=== PATIENT | female | born 1945 | race African-American/Black ===

== ENCOUNTER 2019-10-27 12:57 | Emergency (ER) | payer BC, MEDICAID ==
[~2019-10-27] VITALS: Ht 160 cm; Wt 50.8 kg
[~2019-10-27 12:57] MED LIST: BACL10TA PO; ESCI20TA PO; MELO-105 PO; OMEP20CA15 PO; ZOLP5TAB2 PO
--- NOTE | 2019-10-27 13:04 | NUR ---
PT BIB SELF C/O BURNING LIKE CHEST PAIN X 2 DAYS. WAS DISCHARGE AT [facility]. PT IS AAOX4, NOT IN RESPIRATORY DISTRESS, HOOKED TO MONITOR, KEPT RESTED AND COMFORTABLE, WILL CONTINUE TO MONITOR.
--- NOTE | 2019-10-27 13:13 | NUR ---
SEEN AND EXAMINED BY
--- NOTE | 2019-10-27 13:48 | NUR ---
ER PHLEB AT BEDSIDE FOR BLOOD DRAW.
[2019-10-27 14:00] LABS: BASOPHILS # (AUTO) 0.1 /CMM (0.0-0.2); BASOPHILS % (AUTO) 0.8 % (0.0-2.0); EOSINOPHILS % (AUTO) 0.7 % (0.0-6.0); HEMATOCRIT 38 % (33-45); HEMOGLOBIN 12.3 g/dL (11.5-14.8); LYMPHOCYTES # (AUTO) 2.7 /CMM (0.8-4.8); LYMPHOCYTES % (AUTO) 29.7 % (20.0-44.0); MEAN CORPUSCULAR HGB CONC 32 g/dl (31.0-36.0); MEAN CORPUSCULAR VOLUME 89 fL (82-100); MONOCYTES # (AUTO) 0.8 /CMM (0.1-1.30); MONOCYTES % (AUTO) 9.2 % (2.0-12.0); NEUTROPHILS # (AUTO) 5.4 /CMM (1.8-8.9); NEUTROPHILS % (AUTO) 59.6 % (43.0-81.0); PLATELET COUNT (AUTO) 255 /CMM (150-450); RED BLOOD CELL COUNT(AUTO) 4.28 MIL/uL (4.0-5.2)
[2019-10-27 14:05] LABS: CALCIUM, SERUM 8.9 mg/dL (8.5-10.1); CARBON DIOXIDE 28 mmol/L (21-32); CHLORIDE 104 mmol/L (98-107); GLUCOSE 83 mg/dL (74-106); POTASSIUM 3.1 mmol/L (3.5-5.1); SODIUM SERUM 142 mmol/L (136-145); UREA NITROGEN, BLOOD 15 mg/dL (7-18)
[2019-10-27 14:55] LABS: ALBUMIN 3.2 g/dL (3.4-5.0); BILIRUBIN,DIRECT 0.1 mg/dL (0.0-0.2); BILIRUBIN,TOTAL 0.3 mg/dL (0.2-1.0); TOTAL PROTEIN, SERUM 6.9 g/dL (6.4-8.2)
[2019-10-27] MEDS ORDERED: PREG150C PO (16:06)
[2019-10-27] MEDS ORDERED: LEVO25TA7 PO (16:06)
[2019-10-27] MEDS ORDERED: PREG75CA PO (16:06)
[2019-10-27] MEDS ORDERED: GABA-534 PO (16:06)
[2019-10-27] MEDS ORDERED: FURO-145 PO (16:06)
[2019-10-27] MEDS ORDERED: OXYC30TA2 PO (16:06)
--- NOTE | 2019-10-27 16:23 | NUR ---
PT TAKEN TO CT
[2019-10-27] MEDS ORDERED: CT SWABBABLE VALVE TRANS SET 1 EA INFUS.SET MC ONE (16:24)
[2019-10-27] MEDS ORDERED: IOHEXOL-300 100 ML VIAL IV ONE (16:24)
[2019-10-27] MEDS ORDERED: IV NS 0.9% 250 ML IV ONE (16:24)
[2019-10-27 19:05] VITALS: BP 115/57
--- NOTE | 2019-10-27 19:05 | NUR ---
IV removed. Catheter intact and site benign. Pressure and 4x4 applied to site. No bleeding noted. Patient discharged to home in stable condition. Written and verbal after care instructions given. Patient verbalizes understanding of instruction.
== END 2019-10-27 19:07 | disposition home or self-care (01) ==
LOC: ER 13:07
DX: K59.00 Constipation, unspecified (principal); R07.89 Other chest pain; K62.89 Other specified diseases of anus and rectum; L03.114 Cellulitis of left upper limb; G89.29 Other chronic pain; I10 Essential (primary) hypertension; Z96.653 Presence of artificial knee joint, bilateral; Z95.0 Presence of cardiac pacemaker; Z79.899 Other long term (current) drug therapy
CPT/HCPCS: 36415; 71045; 72131; 74177; 80048; 80076; 83690; 84484; 85025; 85652; 86140; 93005 ×2; 99284; J7050; Q9967

== ENCOUNTER 2019-10-31 16:45 | Emergency (ER) | payer BC, MEDICAID ==
[~2019-10-31] VITALS: Ht 160 cm; Wt 52.2 kg
[~2019-10-31 16:45] MED LIST changes: -ESCI20TA PO; +FURO-145 PO; +GABA-534 PO; +LEVO25TA7 PO; -MELO-105 PO; +OMEP20CA11 PO; -OMEP20CA15 PO; +OXYC30TA2 PO; +PREG150C PO; +PREG75CA PO; -ZOLP5TAB2 PO
--- NOTE | 2019-10-31 17:12 | NUR ---
PATIENT ARRIVED AT UNIT, BIB NEPHEW. PATIENT A/O X 3. WITH REPORT OF CONSTIPATION X 2 WEEKS. ALSO WITH C/O ABD PAIN AND N/V. RESTING ON BED. WILL CONTINUE TO MONITOR ACCORDINGLY
[2019-10-31 17:19] VITALS: BP 135/73
--- NOTE | 2019-10-31 17:24 | NUR ---
PATIENT LEFT ER AMBULATORY WITHOUT BEING SEEN. AWARE.
== END 2019-10-31 17:26 | disposition left against medical advice (07) ==
LOC: ER 16:53
DX: Z53.21 Procedure and treatment not carried out due to patient leaving prior to being seen by health care provider (principal); K59.00 Constipation, unspecified; R11.2 Nausea with vomiting, unspecified; R10.9 Unspecified abdominal pain; I10 Essential (primary) hypertension; Z98.890 Other specified postprocedural states; Z95.0 Presence of cardiac pacemaker

== ENCOUNTER 2020-04-27 14:04 | Emergency (ER) | payer BC, OTHER ==
[~2020-04-27] VITALS: Ht 152.4 cm; Wt 44.9 kg
[~2020-04-27 14:04] MED LIST changes: -OMEP20CA11 PO; +OMEP20CA15 PO
[2020-04-27] MEDS ORDERED: ONDANSETRON HCL/PF 4 MG/2 ML VIAL ONE (14:19)
[2020-04-27] MEDS ORDERED: FAMOTIDINE/PF INJ 20 MG/2 ML VIAL IV ONE ×2 (14:30→15:00)
[2020-04-27] MEDS ORDERED: IV NS 0.9% 500 ML BAG IV ONE (14:30)
[2020-04-27] MEDS ORDERED: MAG HYDROX/AL HYDROX/SIMETH 30 ML UDC PO ONE (14:30)
[2020-04-27] MEDS ORDERED: ONDANSETRON HCL/PF 4 MG/2 ML VIAL IVP ONE (14:30)
[2020-04-27] MEDS ORDERED: LIDOCAINE VISCOUS 2% UD 15 ML UDC MM ONE (14:30)
[2020-04-27 14:37] LABS: BASOPHILS # (AUTO) 0.1 /CMM (0.0-0.2); BASOPHILS % (AUTO) 1.5 % (0.0-2.0); EOSINOPHILS % (AUTO) 0.6 % (0.0-6.0); HEMATOCRIT 36 % (33-45); HEMOGLOBIN 11.6 g/dL (11.5-14.8); LYMPHOCYTES # (AUTO) 2.2 /CMM (0.8-4.8); LYMPHOCYTES % (AUTO) 23.4 % (20.0-44.0); MEAN CORPUSCULAR HGB CONC 33 g/dl (31.0-36.0); MEAN CORPUSCULAR VOLUME 87 fL (82-100); MONOCYTES # (AUTO) 0.8 /CMM (0.1-1.30); MONOCYTES % (AUTO) 8.5 % (2.0-12.0); NEUTROPHILS # (AUTO) 6.1 /CMM (1.8-8.9); PLATELET COUNT (AUTO) 379 /CMM (150-450); RED BLOOD CELL COUNT(AUTO) 4.08 MIL/uL (4.0-5.2); WHITE BLOOD COUNT (AUTO) 9.2 K/uL (4.3-11.0)
[2020-04-27 14:43] LABS: CALCIUM, SERUM 8.9 mg/dL (8.5-10.1); CARBON DIOXIDE 28 mmol/L (21-32); CHLORIDE 107 mmol/L (98-107); CREATININE 1.1 mg/dL (0.6-1.3); GLUCOSE 68 mg/dL (74-106); POTASSIUM 3.9 mmol/L (3.5-5.1); SODIUM SERUM 144 mmol/L (136-145); UREA NITROGEN, BLOOD 16 mg/dL (7-18)
[2020-04-27 14:49] LABS: ALANINE AMINOTRANSFERASE 30 U/L (12-78); ALBUMIN 2.8 g/dL (3.4-5.0); ALKALINE PHOSPHATASE 245 U/L (46-116); ASPARTATE AMINOTRANSFERASE 106 U/L (15-37); BILIRUBIN,DIRECT 0.7 mg/dL (0.0-0.2); BILIRUBIN,TOTAL 1.3 mg/dL (0.2-1.0); LIPASE 38 U/L (73-393)
[2020-04-27] MEDS ORDERED: LIDOCAINE VISCOUS 2% UD 15 ML UDC ONE (15:00)
[2020-04-27] MEDS ORDERED: MAG HYDROX/AL HYDROX/SIMETH 30 ML UDC ONE (15:00)
--- NOTE | 2020-04-27 16:30 | NUR ---
TOOK OVER PT CARE. PT AAOX4. AMBULATORY USING ONE CRUTCH. PT C/O INTERMITTENT MIDSTERNAL CP WITH UPPER ABD PAIN FOR THE PAST MONTH. LABS AND URINE COLELCTED. PT DENIES PAIN AT THE MOMENET. VSS. WILL CONTINUE TO MONITOR.
--- NOTE | 2020-04-27 17:03 | NUR ---
Patient is resting comfortably. Easily aroused. VSS.
[2020-04-27 17:05] LABS: APPEARANCE,URINE Slightly Cloudy (CLEAR); BILIRUBIN,URINE LARGE (NEGATIVE); BLOOD, URINE Large Ery/uL (NEGATIVE); COLOR,URINE Amber (YELLOW); KETONES,URINE 40 (NEGATIVE); LEUKOCYTE ESTERASE ,URINE Negative (NEGATIVE); NITRITE, URINE Negative (NEGATIVE); PROTEIN,URINE 100 mg/dl (NEGATIVE); UGLUCOSE Negative (NEGATIVE)
[2020-04-27 17:20] LABS: BACTERIA,URINE Few /HPF (None Seen); SQUAMOUS EPITHELIAL CELL,UR Few /HPF (None Seen)
--- NOTE | 2020-04-27 17:49 | NUR ---
PT PLACED IN ROOM 7
--- NOTE | 2020-04-27 18:09 | NUR ---
ORDER FOR COVID SWAB PLACED. CALLED LAB FOR SWAB.
--- NOTE | 2020-04-27 18:31 | NUR ---
COVID SWAB SENT TO LAB
[2020-04-27 19:26] VITALS: BP 121/73
--- NOTE | 2020-04-27 19:26 | NUR ---
Patient discharged to home in stable condition. Written and verbal after care instructions given. Patient verbalizes understanding of instruction and RX. IV removed. Catheter intact and site benign. Pressure and 4x4 applied to site. No bleeding noted.
--- NOTE | 2020-04-28 23:02 | NUR ---
LAB CALLED WITH COVID 19 RESULT. COVID 19 TEST IS NEGATIVE.
== END 2020-04-27 20:06 | disposition home or self-care (01) ==
LOC: ER 14:16
DX: R05 Cough (principal); R07.9 Chest pain, unspecified; Z20.828 Contact with and (suspected) exposure to other viral communicable diseases; I50.9 Heart failure, unspecified; Z95.0 Presence of cardiac pacemaker; G89.29 Other chronic pain; Z79.899 Other long term (current) drug therapy; Z87.891 Personal history of nicotine dependence; E03.9 Hypothyroidism, unspecified; Z79.890 Hormone replacement therapy; I70.0 Atherosclerosis of aorta; R91.8 Other nonspecific abnormal finding of lung field; R10.30 Lower abdominal pain, unspecified; R60.0 Localized edema; R74.0 Nonspecific elevation of levels of transaminase and lactic acid dehydrogenase [LDH]; E88.09 Other disorders of plasma-protein metabolism, not elsewhere classified; E80.6 Other disorders of bilirubin metabolism
CPT/HCPCS: 36415; 71045; 80048; 80076; 81001; 83690; 83880; 84484 ×2; 85025; 85730; 93005; 96361; 96374; 96375; 99285; J2405; J3490; J7040; U0003; 81000-TC

== ENCOUNTER 2020-05-14 13:57 | Inpatient (IN) | payer OTHER ==
[~2020-05-14] VITALS: Ht 152.4 cm; Wt 51.7 kg
[2020-05-14] MEDS ORDERED: IV NS 0.9% 1,000 ML IV ONE (14:10)
--- NOTE | 2020-05-14 14:10 | NUR ---
patient came in to the er c/o feeling sick and weak. On room air, breathing evenly and unlabored. connected to the monitor and pulse ox. Kept comfortable, will continue to monitor accordingly.
[2020-05-14] MEDS ORDERED: ONDANSETRON HCL/PF 4 MG/2 ML VIAL ONE (14:15)
[2020-05-14] MEDS ORDERED: KETOROLAC TROMETHAMINE 15 MG/ML VIAL ONE (14:15)
[2020-05-14] MEDS ORDERED: ONDANSETRON HCL/PF 4 MG/2 ML VIAL IVP ONE (14:30)
[2020-05-14] MEDS ORDERED: KETOROLAC TROMETHAMINE INJ 30 MG/ML VIAL IV ONE (14:30)
[2020-05-14 14:46] LABS: ABG BASE EXCESS 0.5 mmol/L; ABG OXYGEN SATURATION 92.6 % (92.0-98.5); ABG PCO2 37.4 mmHg (35.0-45.0); ABG PH 7.435 (7.350-7.450); ABG PO2 67.8 mmHg (75.0-100.0); AaDO2 37.1 mmHg; COHb 0.8 % (0.5-1.5); MetHb 0.4 % (0.0-1.5); O2Hb 91.5 % (94.0-97.0); SITE, ABG Right Radial; VENT MODE, BG ROOM AIR
[2020-05-14 15:22] LABS: BASOPHILS # (AUTO) 0.1 /CMM (0.0-0.2); EOSINOPHILS % (AUTO) 0.5 % (0.0-6.0); HEMATOCRIT 34 % (33-45); LYMPHOCYTES % (AUTO) 10.9 % (20.0-44.0); MEAN CORPUSCULAR HGB CONC 33 g/dl (31.0-36.0); MEAN CORPUSCULAR VOLUME 86 fL (82-100); MONOCYTES # (AUTO) 1.2 /CMM (0.1-1.30); MONOCYTES % (AUTO) 12.7 % (2.0-12.0); NEUTROPHILS % (AUTO) 74.9 % (43.0-81.0); PLATELET COUNT (AUTO) 422 /CMM (150-450); RED BLOOD CELL COUNT(AUTO) 3.91 MIL/uL (4.0-5.2); WHITE BLOOD COUNT (AUTO) 9.3 K/uL (4.3-11.0)
[2020-05-14 15:32] LABS: CALCIUM, SERUM 8.5 mg/dL (8.5-10.1); CARBON DIOXIDE 30 mmol/L (21-32); CHLORIDE 98 mmol/L (98-107); CREATININE 1.2 mg/dL (0.6-1.3); GLUCOSE 78 mg/dL (74-106); POTASSIUM 3.3 mmol/L (3.5-5.1); SODIUM SERUM 137 mmol/L (136-145); UREA NITROGEN, BLOOD 15 mg/dL (7-18)
--- NOTE | 2020-05-14 15:38 | NUR ---
urine collected and sent to lab
[2020-05-14] MEDS ORDERED: IOHEXOL-300 100 ML VIAL IV ONE (15:42)
[2020-05-14] MEDS ORDERED: IV NS 0.9% 250 ML IV ONE (15:42)
[2020-05-14 15:44] LABS: APPEARANCE,URINE Slightly Cloudy (CLEAR); BILIRUBIN,URINE LARGE (NEGATIVE); BLOOD, URINE Negative Ery/uL (NEGATIVE); COLOR,URINE Amber (YELLOW); KETONES,URINE 40 (NEGATIVE); LEUKOCYTE ESTERASE ,URINE Negative (NEGATIVE); NITRITE, URINE Negative (NEGATIVE); PH,URINE 5.5 (5.0-8.0); PROTEIN,URINE 100 mg/dl (NEGATIVE); UGLUCOSE Negative (NEGATIVE)
[2020-05-14 15:45] LABS: ALANINE AMINOTRANSFERASE 36 U/L (12-78); ALBUMIN 2.4 g/dL (3.4-5.0); ALKALINE PHOSPHATASE 396 U/L (46-116); ASPARTATE AMINOTRANSFERASE 174 U/L (15-37); B-TYPE NATRIURETIC PEPTIDE 930 PG/ML (0-125); BILIRUBIN,TOTAL 1.5 mg/dL (0.2-1.0); TOTAL PROTEIN, SERUM 5.9 g/dL (6.4-8.2)
[2020-05-14 15:56] LABS: BACTERIA,URINE None seen /HPF (None Seen); RBC,URINE 0-2 /HPF (0-2); SQUAMOUS EPITHELIAL CELL,UR Few /HPF (None Seen)
[2020-05-14] MEDS ORDERED: HYDR-3980 MT (15:59)
[2020-05-14] MEDS ORDERED: ONDA-97 PO (15:59)
[2020-05-14] MEDS ORDERED: BENZ-38 MT (15:59)
[2020-05-14 16:13] LABS: THYROID STIMULATING HORMONE 2.863 uIU/mL (0.358-3.74)
[2020-05-14] MEDS ORDERED: LEVOFLOXACIN 750 MG /D5W 150ML 150 ML IV ONE (16:26)
[2020-05-14] MEDS ORDERED: VANCOMYCIN HCL 1.25 GM in IV D5W 260 ML IV ONE (16:30)
[2020-05-14] MEDS ORDERED: LEVOFLOXACIN 750 MG /D5W 150ML PIGGYBACK IV ONE (16:30)
[2020-05-14 16:41] LABS: D-DIMER 5.4 mg/L(FEU (0.17-0.50)
[2020-05-14] MEDS ORDERED: VANCOMYCIN HCL 1.25 GM in IV D5W 250 ML IV ONE (16:41)
[2020-05-14] MEDS ORDERED: MAGNESIUM HYDROXIDE 30 ML UDC PO PRN (17:00)
[2020-05-14] MEDS ORDERED: HYDROCODONE/APAP 5/325MG 1 EACH TABLET PO PRN (17:00)
[2020-05-14] MEDS ORDERED: ACETAMINOPHEN 325 MG TABLET PO PRN (17:00)
[2020-05-14] MEDS ORDERED: DOXYCYCLINE HYCLATE (100 MG) 100 MG TABLET PO SCH (17:00)
[2020-05-14] MEDS ORDERED: MAG HYDROX/AL HYDROX/SIMETH 30 ML UDC PO PRN (17:00)
[2020-05-14] MEDS ORDERED: TEMAZEPAM 15 MG CAPSULE PO PRN (17:00)
[2020-05-14] MEDS ORDERED: ENOXAPARIN SODIUM 40 MG/0.4 ML DISP.SYRIN SQ SCH (17:00)
[2020-05-14] MEDS ORDERED: Z GUARD REMEDY 2 OZ OINT TP PRN (17:00)
--- NOTE | 2020-05-14 18:23 | NUR ---
NURSING SUP GAVE 105.
[2020-05-14 18:24] LABS: BILIRUBIN,DIRECT 0.9 mg/dL (0.0-0.2)
--- NOTE | 2020-05-14 19:08 | NUR ---
report given to Libby CLEARY for sherry
--- NOTE | 2020-05-14 20:08 | NUR ---
REPORT GIVEN TO KASHIF CLEARY
[2020-05-14 20:15] VITALS: BP 97/52
--- NOTE | 2020-05-14 20:15 | NUR ---
RN ADMITTING NOTES: RECEIVED PATIENT FROM ER VIA GURNEY; ADMITTING DIAGNOSIS OF BILATERAL PNEUMONIA R/O COVID19; RESULTS PENDING. PATIENT AWAKE, ALERT AND ORIENTED X4. DENIES PAIN AT TIME OF RECEIPT. IN NO S/SX OF ACUTE DISTRESS AT THIS TIME. NO SOB NOTED. PATIENT'S BREATHING IS EVEN AND UNLABORED. PATIENT IS ON RA ; TOLERATING WELL.SATURATING >95% AT THE MOMENT. PATIENT ON TELE MONITORING READING SR WITH HR 60s. NOTED IV SITE ON L HAND ; GAUGE 20 ,FLUSHING AND PATENT , SALINE LOCKED. NO S/S OF INFECTION OR INFILTRATION. PATIENT ON DIAPERS. NOTED BILATERAL FOOT SWELLING/EDEMA; PICTURE TAKEN AND PLACED IN CHART. PATIENT KEPT CLEAN , DRY AND COMFORTABLE.SAFETY MEASURES HAVE BEEN PROVIDED AND IMPLEMENTED. PATIENT BED ALARM IS ON. HEAD OF BED ELEVATED. BED IS LOCKED, IN LOWEST POSITION AND SIDE RAILS UP. CALL LIGHT WITHIN REACH OF THE PATIENT. ISOLATION PRECAUTIONS IN PLACE. WILL CONTINUE TO MONITOR AND REASSESS FOR ANY CHANGES. WILL ATTEND TO ALL MD ADMITTING ORDERS.
[2020-05-14] MEDS ORDERED: CEFEPIME 1 GM in IV D5W 50 ML IV SCH (21:00)
[2020-05-14 21:57] LABS: CREATINE KINASE, TOTAL 107 U/L (26-192); FERRITIN 1413 ng/mL (8-388)
[2020-05-14 21:59] LABS: C-REACTIVE PROTEIN 8.2 mg/dL (0.0-0.9)
[2020-05-15] VITALS: BP_SYST 108; BP_SYST 97; BP_DIAS 52; BP_DIAS 65
[2020-05-15] MEDS: IV NS 0.9% 1,000 ML IV PRN ×2 (01:16→17:11)
[2020-05-15 04:00] VITALS: BP_SYST 100; BP_SYST 107; BP_DIAS 51; BP_DIAS 55
[2020-05-15 06:29] LABS: BASOPHILS % (AUTO) 0.5 % (0.0-2.0); EOSINOPHILS % (AUTO) 0.3 % (0.0-6.0); HEMATOCRIT 30 % (33-45); HEMOGLOBIN 10.2 g/dL (11.5-14.8); LYMPHOCYTES # (AUTO) 1.7 /CMM (0.8-4.8); LYMPHOCYTES % (AUTO) 20.3 % (20.0-44.0); MEAN CORPUSCULAR HGB CONC 34 g/dl (31.0-36.0); MEAN CORPUSCULAR VOLUME 85 fL (82-100); MONOCYTES # (AUTO) 0.6 /CMM (0.1-1.30); MONOCYTES % (AUTO) 6.6 % (2.0-12.0); NEUTROPHILS # (AUTO) 6.1 /CMM (1.8-8.9); NEUTROPHILS % (AUTO) 72.3 % (43.0-81.0); PLATELET COUNT (AUTO) 384 /CMM (150-450); RED BLOOD CELL COUNT(AUTO) 3.57 MIL/uL (4.0-5.2); WHITE BLOOD COUNT (AUTO) 8.5 K/uL (4.3-11.0)
[2020-05-15 06:37] LABS: CALCIUM, SERUM 7.6 mg/dL (8.5-10.1); CREATININE 1.1 mg/dL (0.6-1.3); MAGNESIUM 1.6 mg/dL (1.8-2.4); PHOSPHORUS 3.2 mg/dL (2.5-4.9); POTASSIUM 3.1 mmol/L (3.5-5.1)
--- NOTE | 2020-05-15 06:37 | NUR ---
RN CLOSING NOTE: PATIENT REMAINS IN ROOM. NO SIGNS OF RESPIRATORY. SAFETY MEASURES IMPLEMENTED, BED IN LOWEST POSITION, LOCKED, SIDE RAILS UP, CALL LIGHT WITHIN REACH. ENDORSED TO INCOMING SHIFT RN FOR CONTINUITY OF CARE.
[2020-05-15 07:11] LABS: THYROID STIMULATING HORMONE 2.184 uIU/mL (0.358-3.74)
--- NOTE | 2020-05-15 07:43 | NUR ---
RN OPENING NOTE: PATIENT REMAINS IN ROOM. ALERT AND ORIENTED X4. SAFETY MEASURES IMPLEMENTED, BED IN LOWEST POSITION, LOCKED, SIDE RAILS UP, CALL LIGHT WITHIN REACH. WILL CONTINUE FOR CARE.
[2020-05-15] MEDS: PANTOPRAZOLE 40 MG TABLET.DR PO SCH (07:57)
[2020-05-15 08:00] VITALS: BP 105/56
[2020-05-15] MEDS: HYDROCODONE/APAP 10/325MG 1 EA TABLET PO PRN ×2 (10:37→19:33)
--- NOTE | 2020-05-15 10:43 | NUR ---
WOUND CARE CONSULT: REVIEWED CHART, NURSING DOCUMENTATION AND PHOTOS WHICH SHOW SCARS, BRUISING AND DISCOLORATION TO EXTREMITIES, PRESENT ON ADMISSION. RECOMMENDATIONS MADE FOR SKIN PROTECTION. SPOKE WITH RN WHO STATES THAT PT IS MOVING ABOUT IN BED. WILL SEE PRN. MCELROY IN AGREEMENT WITH PLAN OF CARE.
[2020-05-15] MEDS: POTASSIUM CHLORIDE 20 MEQ TAB.PRT.SR PO SCH ×2 (11:35→12:44)
[2020-05-15] MEDS: Magnesium 1GM/D5W 100ML PREMIX 100 ML IV SCH ×2 (11:35→12:44)
[2020-05-15 12:00] VITALS: BP 80/40
--- NOTE | 2020-05-15 13:20 | NUR ---
COVID NEGATIVE JESSICA Liu AND DR. FLORES NOTIFIED.
[2020-05-15 16:00] VITALS: BP 86/50
[2020-05-15] MEDS ORDERED: LEVOFLOXACIN 500 MG /D5W 100ML 500 MG in PREMIX 1 EA IV SCH (16:00)
--- NOTE | 2020-05-15 17:00 | NUR ---
MS RN NOTES REPORT RECEIVED FROM [facility] PATIENT IS TRANSFERRED TO ROOM 111 BED 1. PATIENT CYRIL. WILL CONTINUE TO MONITOR HER.
[2020-05-15] MEDS: LEVOFLOXACIN 750 MG /D5W 150ML 750 MG in PREMIX 1 EA IV SCH (17:11)
--- NOTE | 2020-05-15 18:31 | NUR ---
RN NOTES PER DR DAVIS GI CONSULT WITH DR MANZANO ORDERED. CALLED DR MANZANO`S OFFICE AND LEFT A MESSAGE FOR THE CONSULTATION.
[2020-05-15] MEDS: ONDANSETRON HCL/PF 4 MG/2 ML VIAL IVP PRN (18:43)
--- NOTE | 2020-05-15 19:22 | NUR ---
MS RN NOTES PATIENT IN BED A/OX4. NO SOB OR DISCOMFORT AT THIS TIME. ALL NEEDS ATTENDED. CALL LIGHT WITHIN REACH. BED AT THE LOWEST POSITION LOCKED. REPORT GIVEN TO DESIGN ANALYST RN FOR SHELIA.
[2020-05-15 20:00] VITALS: BP 97/55
[2020-05-15] MEDS: ENOXAPARIN SODIUM 30 MG/0.3 ML DISP.SYRIN SQ SCH ×2 (21:23→21:46)
[2020-05-16 06:14] LABS: BASOPHILS # (AUTO) 0.1 /CMM (0.0-0.2); BASOPHILS % (AUTO) 0.7 % (0.0-2.0); EOSINOPHILS % (AUTO) 0.3 % (0.0-6.0); HEMATOCRIT 32 % (33-45); HEMOGLOBIN 10.4 g/dL (11.5-14.8); LYMPHOCYTES # (AUTO) 1.8 /CMM (0.8-4.8); LYMPHOCYTES % (AUTO) 19.3 % (20.0-44.0); MEAN CORPUSCULAR HGB CONC 33 g/dl (31.0-36.0); MEAN CORPUSCULAR VOLUME 86 fL (82-100); MONOCYTES # (AUTO) 0.7 /CMM (0.1-1.30); MONOCYTES % (AUTO) 7.5 % (2.0-12.0); NEUTROPHILS # (AUTO) 6.7 /CMM (1.8-8.9); NEUTROPHILS % (AUTO) 72.2 % (43.0-81.0); PLATELET COUNT (AUTO) 401 /CMM (150-450); RED BLOOD CELL COUNT(AUTO) 3.68 MIL/uL (4.0-5.2); WHITE BLOOD COUNT (AUTO) 9.3 K/uL (4.3-11.0)
[2020-05-16 06:54] LABS: ALBUMIN 1.8 g/dL (3.4-5.0); BILIRUBIN,TOTAL 1.3 mg/dL (0.2-1.0); CALCIUM, SERUM 7.5 mg/dL (8.5-10.1); CREATININE 1.1 mg/dL (0.6-1.3); MAGNESIUM 2.2 mg/dL (1.8-2.4); PHOSPHORUS 2.9 mg/dL (2.5-4.9); POTASSIUM 3.7 mmol/L (3.5-5.1); TOTAL PROTEIN, SERUM 4.8 g/dL (6.4-8.2)
--- NOTE | 2020-05-16 07:10 | NUR ---
RN OPENING NOTE: Received patient in bed. Awake, alert and oriented x4. On Room air with no SOB and no respiratory distress noted on patient. IV site clean, dry, patent and intact with IV infusion of NS @ 75mls/hr. No pain noted on patient. Report received that patient has unsteady gait, for PT eval this shift. Call light in reach. Bed locked, low and at semi-ortiz's position. Side rails up x3. Safety ensured and observed. Will continue to monitor.
[2020-05-16 08:00] VITALS: BP 135/89
[2020-05-16] MEDS: PANTOPRAZOLE 40 MG TABLET.DR PO SCH (09:25)
[2020-05-16] MEDS: ONDANSETRON HCL/PF 4 MG/2 ML VIAL IVP PRN (10:23)
[2020-05-16] MEDS: ENSURE ENLIVE 237 ML LIQUID (VANILLA) PO SCH ×3 (11:00→17:00)
[2020-05-16] MEDS ORDERED: PSYLLIUM SEED 1 PKT PACKET PO ONE (13:00)
[2020-05-16 16:00] VITALS: BP 131/85
[2020-05-16] MEDS: DOCUSATE SODIUM 100 MG CAPSULE PO SCH (17:00)
--- NOTE | 2020-05-16 19:05 | NUR ---
RN closing note: No acute changes noted on shift. patient remains in bed. Awake, alert and oriented x4. On Room air with no SOB and no respiratory distress noted on patient. Currently with no IV site due to patient pulling site and refusing reinsertion. Sanjay Blevins informed and acknowledged information. Call light in reach. Bed locked, low and at semi-ortiz's position. Side rails up x3. Safety ensured and observed. Due medications given. Treatment given as ordered.
[2020-05-16 20:00] VITALS: BP 120/59
[2020-05-16] MEDS: ENOXAPARIN SODIUM 30 MG/0.3 ML DISP.SYRIN SQ SCH (21:16)
[2020-05-17] VITALS: BP 120/59
[2020-05-17] MEDS: IV NS 0.9% 1,000 ML IV PRN (01:29)
[2020-05-17 08:00] VITALS: BP_SYST 101; BP_SYST 118; BP_DIAS 55; BP_DIAS 84
--- NOTE | 2020-05-17 08:00 | NUR ---
RN NOTES RECEIVED PATIENT IN THE BED RESTING, GET CT OF CHEST WO CONTRAST, PATIENT A/O X3, REDIRECTABLE, V/S WNL, ADMINISTERED SCHEDULED MEDICATION, PATIENT WAS COMPLAINING OF PAIN ON UPPER CHEST. PATIENT PREFERRED TAKE BREAKFAST LATE BECAUSE WANTED TO REST. CALL LIGHT WITHIN TO REACH. CONTINUED MONITORING.
[2020-05-17] MEDS: PANTOPRAZOLE 40 MG TABLET.DR PO SCH (09:21)
[2020-05-17] MEDS: DOCUSATE SODIUM 100 MG CAPSULE PO SCH ×2 (09:21→17:00)
[2020-05-17] MEDS: ENSURE ENLIVE 237 ML LIQUID (VANILLA) PO SCH ×3 (09:22→17:00)
[2020-05-17] MEDS: HYDROCODONE/APAP 10/325MG 1 EA TABLET PO PRN (09:23)
--- NOTE | 2020-05-17 09:23 | NUR ---
RN NOTES ADMINISTERED NARCO 10/325 MG PO PRN FOR UPPER CHEST PAIN 06/01 PER PATIENT REQUEST, BP 101/55, P-93, R-18. CONTINUED MONITORING.
[2020-05-17] MEDS: ONDANSETRON HCL/PF 4 MG/2 ML VIAL IVP PRN (10:27)
--- NOTE | 2020-05-17 10:27 | NUR ---
rn notes administered Zofran 4 mg/ml iv push for nausea/vomiting.
[2020-05-17] MEDS ORDERED: PEG 3350/NA SULF,BICARB,CL/KCL 4,000 ML BOTTLE PO ONE (13:00)
[2020-05-17 13:17] LABS: PTH, INTACT 23 pg/mL (15-65)
--- NOTE | 2020-05-17 13:32 | NUR ---
rn notes PATIENT NPO FOR COLONOSCOPE LATE AFTERNOON STARTED GOLYTELY 4L AT THIS TIME, EDUCATION PATIENT IMPORTANT OF MEDICATION INTAKE.
--- NOTE | 2020-05-17 13:50 | NUR ---
rn notes patient with PT at this time get out of bed, and marches the place, then assist back to the bed.
[2020-05-17 14:22] LABS: *SPE A/G RATIO 0.8 (0.7-1.7); *SPE ALBUMIN 2.1 g/dL (2.9-4.4); *SPE ALPHA-1-GLOBULIN 0.4 g/dL (0.0-0.4); *SPE ALPHA-2-GLOBULIN 0.7 g/dL (0.4-1.0); *SPE BETA GLOBULIN 0.7 g/dL (0.7-1.3); *SPE GLOBULIN, TOTAL 2.5 g/dL (2.2-3.9); *SPE M-SPIKE Not Observed g/dL (Not Observed); *SPEGAMMA GLOBULIN 0.8 g/dL (0.4-1.8)
[2020-05-17] MEDS: MORPHINE SULFATE INJ 4 MG/ML DISP.SYRIN IV PRN (15:51)
--- NOTE | 2020-05-17 15:51 | NUR ---
RN NOTES ADMINISTERED MORPHINE SULFATE 4 MG/ML IV PUSH FOR GENERALIZED PAIN 06/01 PER PATIENT REQUEST. V/S TAKEN BP 105/ 63, P-83, R-18. CONTINUED MONITORING.
[2020-05-17 16:00] VITALS: BP 105/62
[2020-05-17] MEDS: LEVOFLOXACIN 750 MG /D5W 150ML 750 MG in PREMIX 1 EA IV SCH (17:26)
--- NOTE | 2020-05-17 18:30 | NUR ---
RN NOTES PATIENT DRINK 2 GLASS OF GOLYTELY AT THIS TIME , PATIENT STATE "I AM TRYING MY BEST". NOTIFIED GI MD TEJADA. AND PER MD GET TO ORDER CONTINUED NPO, AND MEDICATION UNTIL PATIENT WELL CLEAN UP. CALL LIGHT WITHIN TO REACH. ENDORSED ONCOMING NURSE FOLLOW PLAN OF CARE.
--- NOTE | 2020-05-17 19:30 | NUR ---
MS RN RECEIVE PT IN BED AWAKE A/O X 3 STABLE, NO S/S OF DISTRESS, SAFETY MEASURES AT ALL TIMES. WILL CONT TO MONITOR
[2020-05-17 20:00] VITALS: BP 102/58
[2020-05-17] MEDS: ENOXAPARIN SODIUM 30 MG/0.3 ML DISP.SYRIN SQ SCH (22:02)
--- NOTE | 2020-05-17 22:03 | NUR ---
Ms rn Patient refused lovenox 40 mg and lipitor 20 mg despite explaining risks and benefits offered 3 times pt refused at this time Addendum: 05/17/20 at 2207 by GUANACO MCKEON RN MISTAKEN ENTRY PLEASE DISREGARD THIS DOCUMENTATION THIS IS FOR DIFFERENT PATIENT
--- NOTE | 2020-05-18 | NUR ---
MS RN PT REFUSED TO FINISH HER GOLETY DESPITE EXPLAINING RISKS AND BENEFITS OFFERED 3 TIMES PATIENT REFUSED
--- NOTE | 2020-05-18 05:55 | NUR ---
MS RN SLEPT WELL, AFEBRILE. NO S/S OF DISTRESS. ALL NEEDS ATTENDED AND ANTICIPATED, KEPT CLEAN, DRY AND COMFORTABLE. AM CARE RENDERED,ASSISTED REPOSITION EVERY 2 HOURS, SAFETY MEASURES AT ALL TIMES. WILL ENDORSE TO NEXT SHIFT.
[2020-05-18 06:47] LABS: BASOPHILS % (AUTO) 0.4 % (0.0-2.0); EOSINOPHILS % (AUTO) 0.3 % (0.0-6.0); HEMATOCRIT 33 % (33-45); HEMOGLOBIN 10.7 g/dL (11.5-14.8); LYMPHOCYTES # (AUTO) 2.4 /CMM (0.8-4.8); LYMPHOCYTES % (AUTO) 21.4 % (20.0-44.0); MEAN CORPUSCULAR HGB CONC 32 g/dl (31.0-36.0); MEAN CORPUSCULAR VOLUME 85 fL (82-100); MONOCYTES # (AUTO) 0.8 /CMM (0.1-1.30); MONOCYTES % (AUTO) 7.2 % (2.0-12.0); NEUTROPHILS # (AUTO) 7.8 /CMM (1.8-8.9); NEUTROPHILS % (AUTO) 70.7 % (43.0-81.0); PLATELET COUNT (AUTO) 325 /CMM (150-450); RED BLOOD CELL COUNT(AUTO) 3.87 MIL/uL (4.0-5.2); WHITE BLOOD COUNT (AUTO) 11.1 K/uL (4.3-11.0)
[2020-05-18] MEDS: ENSURE ENLIVE 237 ML LIQUID (VANILLA) PO SCH ×3 (07:26→17:41)
[2020-05-18] MEDS: DOCUSATE SODIUM 100 MG CAPSULE PO SCH ×2 (07:27→17:38)
[2020-05-18] MEDS: PANTOPRAZOLE 40 MG TABLET.DR PO SCH (07:27)
[2020-05-18 07:28] LABS: ALANINE AMINOTRANSFERASE 33 U/L (12-78); ALBUMIN 1.8 g/dL (3.4-5.0); ALKALINE PHOSPHATASE 381 U/L (46-116); ASPARTATE AMINOTRANSFERASE 158 U/L (15-37); BILIRUBIN,TOTAL 1.4 mg/dL (0.2-1.0); CALCIUM, SERUM 7.6 mg/dL (8.5-10.1); CARBON DIOXIDE 25 mmol/L (21-32); CHLORIDE 106 mmol/L (98-107); CREATININE 0.9 mg/dL (0.6-1.3); MAGNESIUM 1.9 mg/dL (1.8-2.4); PHOSPHORUS 2.6 mg/dL (2.5-4.9); POTASSIUM 3.7 mmol/L (3.5-5.1); SODIUM SERUM 140 mmol/L (136-145); TOTAL PROTEIN, SERUM 4.8 g/dL (6.4-8.2); UREA NITROGEN, BLOOD 11 mg/dL (7-18)
[2020-05-18 07:58] LABS: GLUCOSE 47 mg/dL (74-106)
[2020-05-18 08:00] VITALS: BP 101/59
--- NOTE | 2020-05-18 08:00 | NUR ---
RN NOTES RECEIVED PATIENT IN THE BED A/O X3, ON ROOM AIR, REFUSED PAIN, PATIENT NPO WILLING TO TAKE GOLYTELY FOR COLONOSCOPY. V/S TAKEN STABLE, PER LAB RESULT PATIENT BS-47. SEEN PATIENT FOR HOSPITALIST GET TO ORDER D51/2 NS AT 80 ML/HR . ORDER TAKEN AND CARRIED OUT. HOSPITALIST TALK TO THE PATIENT AND EXPLAINED FOR IMPORTANT OF TAKING GOLYTELY FOR CONTINUED TREATMENT. PATIENT STATE "I WILL TRY" . CALL LIGHT WITHIN TO REACH, CONTINUED MONITORING.
[2020-05-18] MEDS: IV D5/0.45 NACL 1,000 ML IV PRN (09:58)
[2020-05-18] MEDS: ONDANSETRON HCL/PF 4 MG/2 ML VIAL IVP PRN ×2 (11:20→17:43)
[2020-05-18 11:22] VITALS: BP 121/73
[2020-05-18] MEDS: MORPHINE SULFATE INJ 4 MG/ML DISP.SYRIN IV PRN (11:24)
--- NOTE | 2020-05-18 11:24 | NUR ---
RN NOTES ADMINISTERED MORPHINE SULFATE 4 MG/ML IV PUSH FOR GENERALIZED PAIN 8/10PER PATIENT REQUEST, AND ZOFRAN4 MG/ML IV PUSH FOR NAUSEA. V/S TAKEN BP 121/73, P-93, R-20. PATIENT CLEAN FOR COLONOSCOPY.
--- NOTE | 2020-05-18 12:29 | NUR ---
RN NOTES PATIENT STABLE, V/S WNL, REFUSED PAIN, AND NO N/V AT THIS TIME. FLAT KNITTER FOR COLONOSCOPY AT THIS TIME.
[2020-05-18] MEDS ORDERED: DEXTROSE 50%-WATER 50 ML DISP.SYRIN ONE (13:07)
[2020-05-18 13:45] VITALS: BP 105/62
--- NOTE | 2020-05-18 13:45 | NUR ---
RN NOTES PATIENT BACK FROM COLONOSCOPY DONE SIGMOIDOSCOPY, BIOPSY, AND CURETTAGE AT RECTUM. PATIENT AWAKE, NO ACUTE RESPIRATORY DISTRESS, REFUSED PAIN, ALSO GET ORDERS, RESUME PO MEDICATION, AND PATIENT ABLE TO EAT. V/S TAKEN BP 105/62, P-64, R-18, T-97.8, O2-99 %ROOM AIR. CONNECTED IV D51/2 ND AT 800 ML/HR ON RIGHT UPPER ARM. CONTINUED MONITORING.
[2020-05-18 16:00] VITALS: BP 109/62
--- NOTE | 2020-05-18 17:44 | NUR ---
RN NOTES ADMINISTERED ZOFRAN 4 MG/ML IV PUSH FOR NAUSEA/VOMITING.
--- NOTE | 2020-05-18 18:00 | NUR ---
RN NOTES GTE CALL FROM PATIENT SON NAME RIAN Bacon AND WAS ASKING MORE DITAL INFORMATION ABOUT HIS MOM, TEXT SONS NAME AND PHONE NUMBER TO THE DR DAVIS FOLLOW UP.
--- NOTE | 2020-05-18 18:19 | NUR ---
RN NOTES MEDICATION WERE ADMINISTERED FOR NAUSEA AND VOMITING EFFECTIVE, BUT PATIENT HAS NO APPETITE TO EAT. INFUSING D51/2 NS AT 80 ML/HR INTACT ON RIGHT UA INTACT. PATIENT ON O22LNC. REFUSED PAIN AT THIS TIME. ENDORSED ONCOMING NURSE FOLLOW PLAN OF CARE.
--- NOTE | 2020-05-18 19:23 | NUR ---
MS RN RECEIVE PT IN BED AWAKE WATCHING TV A/O X 3 STABLE, NO S/S OF DISTRESS, SAFETY MEASURES AT ALL TIMES. WILL CONT TO MONITOR
[2020-05-18 20:00] VITALS: BP 98/64
[2020-05-18] MEDS: ENOXAPARIN SODIUM 30 MG/0.3 ML DISP.SYRIN SQ SCH (21:18)
[2020-05-18 21:25] VITALS: BP 98/64
[2020-05-19] MEDS: IV D5/0.45 NACL 1,000 ML IV PRN ×2 (00:18→21:15)
--- NOTE | 2020-05-19 05:24 | NUR ---
MS RN PT SLEPT WELL, AM CARE RENDERED, ASSISTED REPOSITION EVERY 2 HOURS, NEEDS ATTENDED AND ANTICIPATED, NO S/S OF DISTRESS, KEPT CLEAN, DRY AND COMFORTABLE. SAFETY MEASURES AT ALL TIMES. WILL ENDORSE TO NEXT SHIFT.
--- NOTE | 2020-05-19 07:30 | NUR ---
RN OPENING NOTES RECEIVED PATIENT RESTING IN BED. A/OX4. NOT IN ANY FORM OF DISTRESS. NO SOB. DENIED PAIN OR DISCOMFORT AT THIS TIME. IV ACCESS INTACT AND PATENT. KEPT PATIENT SAFE AND COMFORTABLE. BED IN LOW/LOCKED POSITION. SIDERAILS UPX2, CALL LIGHT IN REACH. WILL CONT TO MONIOTR ACCORDINGLY
[2020-05-19 08:00] VITALS: BP 97/54
[2020-05-19] MEDS: DOCUSATE SODIUM 100 MG CAPSULE PO SCH ×2 (09:05→18:04)
[2020-05-19] MEDS: PANTOPRAZOLE 40 MG TABLET.DR PO SCH (09:05)
[2020-05-19] MEDS: ENSURE ENLIVE 237 ML LIQUID (VANILLA) PO SCH ×3 (09:06→18:05)
[2020-05-19 16:00] VITALS: BP 103/61
--- NOTE | 2020-05-19 19:25 | NUR ---
RN CLOSING NOTES PATIENT IN STABLE CONDITION. ALL NEEDS ATTENDED AND PROVIDED. ALL DUE MEDS GIVEN ORDERED. ASSISTED PATIENT WITH ADLS. KEPT PATIENT SAFE AND COMFORTABLE. BED IN LOW/LOCKED POSITION. SIDERAILS UPX2, CALL LIGHT IN REACH. ENDORSED TO NIGHT RN FOR SHELIA.
--- NOTE | 2020-05-19 19:30 | NUR ---
MS RN RECEIVE PT IN BED AWAKE AND NOT IN DISTRESS, NO COMPLAIN OF PAIN, SAFETY MEASURES AT ALL TIMES. WILL CONT TO MONITOR
[2020-05-19 20:00] VITALS: BP 108/64
--- NOTE | 2020-05-20 05:20 | NUR ---
MS RN COMFORTABLE AND NOT IN DISTRESS, MONITORED ACCORDINGLY, AM NURSING CARE, ASSISTED REPOSITION EVERY 2 HOURS, NEEDS ATTENDED AND ANTICIPATED, KEPT CLEAN, DRY AND COMFORTABLE. SAFETY MEASURES AT ALL TIMES. WILL ENDORSE TO NEXT SHIFT.
[2020-05-20 08:00] VITALS: BP 115/66
--- NOTE | 2020-05-20 08:00 | NUR ---
RN NOTES RECEIVED PATIENT IN THE BED A/O X3, ON O2-2LNC, PATIENT HAS NO ACUTE RESPIRATORY DISTRESS, UNLABORED, BUT WAS COMPLAINING OF GENERALIZED PAIN 6/10 PER PAIN SCALE. ADMINISTERED SCHEDULED MEDICATION, V/S STABLE. INFUSING D51/2 NS AT 80 ML/HR INTACT ON RIGHT UA MIDLINE. PATIENT POOR EATER REFUSED BREAKFAST BECAUSE OF NAUSEATING. PATIENT TURN AND REPOSTION SELF IN THE BED, FEEL WEEK, INCONTINENT USING DIAPER, CALL LIGHT WITHIN TO REACH. SAFETY PRECAUTION MAINTAINED ALL THE TIME.
[2020-05-20 08:10] VITALS: BP 115/66
[2020-05-20] MEDS: PANTOPRAZOLE 40 MG TABLET.DR PO SCH (08:48)
[2020-05-20] MEDS: ONDANSETRON HCL/PF 4 MG/2 ML VIAL IVP PRN ×2 (08:48→17:07)
[2020-05-20] MEDS: DOCUSATE SODIUM 100 MG CAPSULE PO SCH ×2 (08:48→17:07)
[2020-05-20] MEDS: HYDROCODONE/APAP 10/325MG 1 EA TABLET PO PRN (08:49)
[2020-05-20] MEDS: ENSURE ENLIVE 237 ML LIQUID (VANILLA) PO SCH ×3 (08:49→17:07)
--- NOTE | 2020-05-20 08:49 | NUR ---
rn notes administered narco 10/325 mg po prn for generalized pain 05/02, and Zofran 4 mg/ml iv push for nausea. v/s taken bp 115/66, p-74. r-17, continued monitoring.
[2020-05-20] MEDS: IV D5/0.45 NACL 1,000 ML IV PRN ×2 (10:26→23:05)
[2020-05-20] MEDS ORDERED: BENZONATATE 100 MG CAPSULE PO PRN (12:00)
[2020-05-20] MEDS: MORPHINE SULFATE INJ 4 MG/ML DISP.SYRIN IV PRN (14:27)
--- NOTE | 2020-05-20 14:27 | NUR ---
RN NOTES ADMINISTERED MORPHINE SULFATE 4 MG/ML IV PUSH FOR GENERALIZED PAIN 07/02 PER PATIENT REQUEST, V/S TAKEN BP 110/65, P-77, R-18.
[2020-05-20 16:12] VITALS: BP 99/59
--- NOTE | 2020-05-20 17:07 | NUR ---
RN NOTES ADMINISTERED ZOFRAN 4 MG/ML IV PUSH FOR NAUSEA.
[2020-05-20] MEDS ORDERED: PROCHLORPERAZINE EDISYLATE 10 MG/2 ML VIAL IM PRN (18:30)
--- NOTE | 2020-05-20 20:13 | NUR ---
RECEIVED PATIENT IN BED ASLEEP APPEARS COMFORTABLE IV INFUSING LEFT UPPER ARM MIDLINE
[2020-05-20 21:20] VITALS: BP 113/67
--- NOTE | 2020-05-21 04:45 | NUR ---
ENDING NOTES: SHOWERED PRIOR GOING TO BED AMBULATES STEADY ON HER LEGS. MEDICATED x1 WITH ZOFRAN AND TORODOL AND EFFECTIVE FOR NAUSEA AND ABD PAIN. BS VIA AUSCULTATION AN UNEVENTFUL NIGHT. Addendum: 05/21/20 at 0448 by NOVA SIDDIQI RN ABOVE NOTES CHARTED ON THE WRONG PATIENT
--- NOTE | 2020-05-21 04:48 | NUR ---
ENDING NOTES: EASILY AWAKENED WHEN NAMED CALLED [facility] SPEECH CLEAR GOOD ABOUT CHANGING HER OWN POSITIO FROM SIDE TO SIDE AND LYING PRONE. SMILES EASILY. ASKED IS SHE HAS PAIN AND SHE FREQUENTLY DENIES.
[2020-05-21 07:11] LABS: BASOPHILS # (AUTO) 0.1 /CMM (0.0-0.2); BASOPHILS % (AUTO) 0.5 % (0.0-2.0); EOSINOPHILS % (AUTO) 0.4 % (0.0-6.0); HEMATOCRIT 34 % (33-45); HEMOGLOBIN 10.9 g/dL (11.5-14.8); LYMPHOCYTES # (AUTO) 2.4 /CMM (0.8-4.8); LYMPHOCYTES % (AUTO) 18.6 % (20.0-44.0); MEAN CORPUSCULAR HGB CONC 32 g/dl (31.0-36.0); MEAN CORPUSCULAR VOLUME 85 fL (82-100); MONOCYTES # (AUTO) 0.7 /CMM (0.1-1.30); MONOCYTES % (AUTO) 5.3 % (2.0-12.0); NEUTROPHILS # (AUTO) 9.7 /CMM (1.8-8.9); NEUTROPHILS % (AUTO) 75.2 % (43.0-81.0); PLATELET COUNT (AUTO) 219 /CMM (150-450); RED BLOOD CELL COUNT(AUTO) 3.96 MIL/uL (4.0-5.2); WHITE BLOOD COUNT (AUTO) 12.9 K/uL (4.3-11.0)
[2020-05-21] MEDS: PANTOPRAZOLE 40 MG TABLET.DR PO SCH (07:30)
[2020-05-21] MEDS: LEVOTHYROXINE SODIUM 50 MCG TABLET PO SCH (07:30)
[2020-05-21] MEDS ORDERED: OMEPRAZOLE 20 MG CAPSULE.DR PO SCH (07:30)
[2020-05-21 08:00] VITALS: BP 91/50
[2020-05-21] MEDS: ENSURE ENLIVE 237 ML LIQUID (VANILLA) PO SCH ×3 (08:25→17:09)
[2020-05-21] MEDS: DOCUSATE SODIUM 100 MG CAPSULE PO SCH ×2 (08:25→17:13)
[2020-05-21] MEDS: PREGABALIN 25 MG CAPSULE PO SCH (08:26)
[2020-05-21] MEDS: MEGESTROL ACETATE SUSP 400 MG/10 ML UDC PO SCH ×2 (08:26→17:13)
[2020-05-21] MEDS ORDERED: FUROSEMIDE 20 MG TABLET PO SCH (09:00)
[2020-05-21 09:10] LABS: CALCIUM, SERUM 7.2 mg/dL (8.5-10.1); CREATININE 0.9 mg/dL (0.6-1.3); POTASSIUM 3.9 mmol/L (3.5-5.1)
[2020-05-21 09:11] LABS: ALBUMIN 1.6 g/dL (3.4-5.0); BILIRUBIN,TOTAL 1.5 mg/dL (0.2-1.0); MAGNESIUM 1.6 mg/dL (1.8-2.4); PHOSPHORUS 2.9 mg/dL (2.5-4.9); TOTAL PROTEIN, SERUM 4.6 g/dL (6.4-8.2)
--- NOTE | 2020-05-21 11:30 | NUR ---
M/S RN NOTES ULTRASOUND CALLED AND WANTS TO WAIT FOR SECOND COVID TEST RESULT BEFORE DOING PROCEDURE ON PATIENT. WAS TOLD THAT THE PATHOLOGIST WOULD WANT THAT RESULT WELL. INFORMED DR. SUBRAMANIAN REGARDING THE CONVERSATION AND PER MD THE SECOND TEST WASN'T NEEDED SO I INFORMED ULTRAS[facility], THEY THEN TOLD ME TO LET DR. SUBRAMANIAN SPEAK TO RADIOLOGIST AND GAVE ME THE EXTENSION [id number] SUBRAMANIAN.
--- NOTE | 2020-05-21 14:20 | NUR ---
BX LIVER NOT PERFORMED, PENDING COVID RESULTS
[2020-05-21] MEDS: IV D5/0.45 NACL 1,000 ML IV PRN (15:02)
[2020-05-21 16:00] VITALS: BP 109/63
[2020-05-21] MEDS: IV D5/ 0.9% NACL 1,000 ML IV PRN (17:05)
[2020-05-21] MEDS: ONDANSETRON HCL/PF 4 MG/2 ML VIAL IVP PRN (17:54)
--- NOTE | 2020-05-21 19:00 | NUR ---
M/S RN NOTES PATIENT RESTING IN BED, NO RESPIRATORY DISTRESS, C/O ABDOMINAL PAIN 5/10. PATIENT'S NAUSEA/VOMITING CEASED AND IMPROVED. PATIENT'S SKIN WARM TO TOUCH, IV ACCESS SITE INTACT AND PATENT, D5 NS RUNNING AT 50ML/HR. PATIENT'S NEEDS ATTENDED, BED ON LOWEST LOCKED POSITION, CALL LIGHT WITHIN REACH. WILL ENDORSE TO ONCOMING NURSE FOR SHELIA.
--- NOTE | 2020-05-21 19:50 | NUR ---
MS RN OPENING NOTES RECEIVED PATIENT FROM MORNING SHIFT, ALERT AND ORIENTED X 3. VERBALLY RESPONSIVE AND ABLE TO FOLLOW DIRECTIONS. BREATHING REGULAR AND UNLABORED ON ROOM AIR. RIGHT UPPER ARM MIDLINE INTACT AND PATENT, INFUSING WELL WITH NO BLEEDING OR S/S OF INFILTRATION NOTED. DENIES SUICIDAL IDEATION AT THIS TIME. COMPLAINED OF 5/10 ABDOMINAL PAIN, ENCOURAGED TO INCREASE ORAL INTAKE, ASSISTED ON DRINKING ENSURE. NON-PHARMACOLOGICAL INTERVENTIONS PROVIDED. BED LOW AND LOCKED ON SEMI FOWLERS POSITION. CALL LIGHT IN REACH. WILL CONTINUE TO MONITOR.
[2020-05-21 20:00] VITALS: BP 105/71
--- NOTE | 2020-05-21 22:00 | NUR ---
MS RN NOTES PATIENT NOT ON DVT PUMP D/T BILATERAL LOWER EXTREMITY EDEMA. LOVENOX ON HOLD FOR LIVER BIOPSY TOMORROW, TO RESUME AFTER SURGERY.
--- NOTE | 2020-05-22 06:40 | NUR ---
MS RN CLOSING NOTES PATIENT IN BED ALERT AND ORIENTED X 3. AFEBRILE WITH NO S/S OF DISTRESS OBSERVED. RIGHT UPPER ARM MIDLINE PATENT AND INFUSING WELL. NO COMPLAINS OF PAIN/DISCOMFORT REPORTED AT THIS TIME. MAINTAINED ON NOTHING BY MOUTH. BED LOW AND LOCKED ON SEMI FOWLERS POSITION. CALL LIGHT IN REACH. WILL ENDORSE TO MORNING SHIFT FOR SHELIA.
[2020-05-22] MEDS: LEVOTHYROXINE SODIUM 50 MCG TABLET PO SCH (07:30)
[2020-05-22] MEDS: PANTOPRAZOLE 40 MG TABLET.DR PO SCH (07:30)
[2020-05-22 08:00] VITALS: BP 100/51
[2020-05-22] MEDS: ENSURE ENLIVE 237 ML LIQUID (VANILLA) PO SCH ×3 (08:17→17:00)
[2020-05-22] MEDS: DOCUSATE SODIUM 100 MG CAPSULE PO SCH ×2 (08:17→17:00)
[2020-05-22] MEDS: PREGABALIN 25 MG CAPSULE PO SCH (08:21)
[2020-05-22] MEDS: MEGESTROL ACETATE SUSP 400 MG/10 ML UDC PO SCH ×2 (08:21→17:00)
[2020-05-22 08:22] LABS: CALCIUM, SERUM 7.4 mg/dL (8.5-10.1); CREATININE 0.8 mg/dL (0.6-1.3); POTASSIUM 3.5 mmol/L (3.5-5.1)
[2020-05-22 08:29] LABS: ALBUMIN 1.6 g/dL (3.4-5.0); BILIRUBIN,TOTAL 1.7 mg/dL (0.2-1.0); MAGNESIUM 1.5 mg/dL (1.8-2.4); TOTAL PROTEIN, SERUM 4.5 g/dL (6.4-8.2)
[2020-05-22 08:36] LABS: BASOPHILS # (AUTO) 0.2 /CMM (0.0-0.2); BASOPHILS % (AUTO) 1.5 % (0.0-2.0); EOSINOPHILS % (AUTO) 0.5 % (0.0-6.0); HEMATOCRIT 37 % (33-45); HEMOGLOBIN 11.8 g/dL (11.5-14.8); LYMPHOCYTES # (AUTO) 2.6 /CMM (0.8-4.8); LYMPHOCYTES % (AUTO) 20.8 % (20.0-44.0); MEAN CORPUSCULAR HGB CONC 32 g/dl (31.0-36.0); MEAN CORPUSCULAR VOLUME 86 fL (82-100); MONOCYTES # (AUTO) 0.8 /CMM (0.1-1.30); MONOCYTES % (AUTO) 6.3 % (2.0-12.0); NEUTROPHILS % (AUTO) 70.9 % (43.0-81.0); PLATELET COUNT (AUTO) 263 /CMM (150-450); RED BLOOD CELL COUNT(AUTO) 4.27 MIL/uL (4.0-5.2); WHITE BLOOD COUNT (AUTO) 12.6 K/uL (4.3-11.0)
--- NOTE | 2020-05-22 09:00 | NUR ---
M/S RN NOTES CALLED ULTRASOUND X3 NO ANSWER, LEFT A MESSAGE REGARDING SCHEDULE FOR BIOPSY TODAY, WILL TRY TO CALL AGAIN.
[2020-05-22] MEDS: Magnesium 1GM/D5W 100ML PREMIX 100 ML IV SCH ×2 (10:59→11:59)
--- NOTE | 2020-05-22 11:15 | NUR ---
M/S RN NOTES CALLED RADIOLOGY WHEN PROCEDURE WILL BE DONE FOR PATIENT, JUST WAITING FOR PATHOLOGIST. WILL INFORM MD.
[2020-05-22] MEDS: ONDANSETRON HCL/PF 4 MG/2 ML VIAL IVP PRN (11:33)
[2020-05-22] MEDS: MORPHINE SULFATE INJ 4 MG/ML DISP.SYRIN IV PRN (11:33)
[2020-05-22] MEDS ORDERED: FENTANYL PF 250MCG/5ML AMPUL IV ONE (12:00)
[2020-05-22] MEDS ORDERED: NALOXONE PREFILLED SYRINGE 2 MG/2 ML SYRINGE IV ONE (12:00)
[2020-05-22] MEDS ORDERED: MIDAZOLAM HCL 5MG/ML VIAL 25 MG/5 ML VIAL IV ONE (12:00)
--- NOTE | 2020-05-22 14:33 | NUR ---
During the Ct liver biopsy, Versed 0.5 mg given IVP at 1333. Unfortunately, unable to do it on JAN due to the order was discontinued. Wasted 1.5 mg, co signed by Dr Schwab, pharmacist Jasbir was notified.
--- NOTE | 2020-05-22 15:35 | NUR ---
M/S RN NOTES PATIENT CAME BACK FROM PROCEDURE, NO ACUTE DISTRESS NOTED. PATIENT RESTING AT THIS TIME, VSS. PATIENT'S DRESSING C/D/I. PATIENT'S NEEDS ATTENDED, WILL CONTINUE TO MONITOR.
[2020-05-22 16:00] VITALS: BP 100/60
--- NOTE | 2020-05-22 18:27 | NUR ---
M/S RN NOTES PATIENT RESTING IN BED, NO RESPIRATORY DISTRESS, NO C/O PAIN AT THIS TIME. PATIENT WITH NO APPETITE, STATED THAT SHE WANTS TO EAT DINNER LATER AND WOULD LIKE TO REST. PATIENT WITH NO N/V AT THIS TIME. PATIENT'S SKIN WARM TO TOUCH, IV ACCESS SITE INTACT AND PATENT, IV D5 NS RUNNING AT 50ML/HR. PATIENT'S NEEDS ATTENDED, BED ON LOWEST LOCKED POSITION, CALLL LIGHT WITHIN REACH. WILL ENDORSE TO ONCOMING NURSE.
[2020-05-22] MEDS: IV D5/ 0.9% NACL 1,000 ML IV PRN (18:44)
--- NOTE | 2020-05-22 19:30 | NUR ---
MS RN OPENING NOTES RECEIVED PATIENT FROM MORNING SHIFT, ALERT AND ORIENTED X 3. VERBALLY RESPONSIVE AND ABLE TO FOLLOW DIRECTIONS. BREATHING REGULAR AND UNLABORED ON ROOM AIR. RIGHT UPPER ARM MIDLINE INTACT AND PATENT, INFUSING WELL WITH NO BLEEDING OR S/S OF INFILTRATION NOTED. DENIES SUICIDAL IDEATION OR PAIN/DISCOMFORT AT THIS TIME. ENCOURAGED TO INCREASE ORAL INTAKE, ASSISTED ON DRINKING ENSURE. BED LOW AND LOCKED ON SEMI FOWLERS POSITION. CALL LIGHT IN REACH. WILL CONTINUE TO MONITOR.
--- NOTE | 2020-05-22 19:40 | NUR ---
MS RN NOTES S/P LIVER BIOPSY WITH NO ACTIVE BLEEDING NOTED ON SITE, NO PAIN/DISCOMFORT REPORTED AT THIS TIME. WILL CONTINUE TO MONITOR.
[2020-05-22 20:00] VITALS: BP 103/50
[2020-05-22 20:02] VITALS: BP 103/38
--- NOTE | 2020-05-23 06:25 | NUR ---
MS RN CLOSING NOTES PATIENT IN BED ALERT AND ORIENTED X 3. AFEBRILE WITH NO S/S OF DISTRESS OBSERVED. RIGHT UPPER ARM MIDLINE PATENT AND INFUSING WELL. NO COMPLAINS OF PAIN/DISCOMFORT REPORTED AT THIS TIME. BED LOW AND LOCKED ON SEMI FOWLERS POSITION. CALL LIGHT IN REACH. WILL ENDORSE TO MORNING SHIFT FOR SHELIA.
[2020-05-23 07:49] LABS: CALCIUM, SERUM 7.7 mg/dL (8.5-10.1); CREATININE 0.8 mg/dL (0.6-1.3); POTASSIUM 2.9 mmol/L (3.5-5.1)
[2020-05-23 08:00] VITALS: BP 100/54
--- NOTE | 2020-05-23 08:00 | NUR ---
MS RN OPENING NOTES Received Patient resting in bed. A/O x 3. VS stable with no acute distress. Breathing even and unlabored on room air with no respiratory distress. Denies pain. No signs and symptoms of pain. DANNY Midline clean, intact, patent and flushing well with D5NS infusing at 50ml/hr. Safety precautions in place. Bed locked and set to lowest position with side rails x 2 up. All needs rendered at this time. Call light within reach. Will continue to monitor.
[2020-05-23] MEDS: DOCUSATE SODIUM 100 MG CAPSULE PO SCH ×2 (08:39→16:27)
[2020-05-23] MEDS: MEGESTROL ACETATE SUSP 400 MG/10 ML UDC PO SCH ×2 (08:39→16:27)
[2020-05-23] MEDS: PANTOPRAZOLE 40 MG TABLET.DR PO SCH (08:39)
[2020-05-23] MEDS: LEVOTHYROXINE SODIUM 50 MCG TABLET PO SCH (08:39)
[2020-05-23] MEDS: PREGABALIN 25 MG CAPSULE PO SCH (08:39)
[2020-05-23] MEDS: POTASSIUM CL. PREMIX PERIPHER. 50 ML IV SCH ×6 (08:39→16:16)
[2020-05-23] MEDS: ENSURE ENLIVE 237 ML LIQUID (VANILLA) PO SCH ×3 (08:52→16:30)
[2020-05-23 16:00] VITALS: BP 100/56
--- NOTE | 2020-05-23 19:01 | NUR ---
MS SENIOR IT BUSINESS ANALYST NOTES Patient discharged for [facility] at this time. Patient in stable condition. VS stable with no acute distress. Breathing even and unlabored on 2LPM via NC with no respiratory distress. Denies pain. No signs and symptoms of pain. Skin assessment pictures taken and placed in chart. DANNY Midline clean, intact, patent and flushing well. Medication reconciliation and discharge orders reviewed and explained to Patient. Patient verbalized understanding. All belongings with Patient. Patient will follow up with oncology in 1 week as outpatient. Patient picked up by [facility] Transport. Report given to Nelda CLEARY.
== END 2020-05-23 19:32 | DRG 356 ==
LOC: ER 14:03 → MEDSG1 18:27 → TELE1 20:20 → MEDSG1 05-15 14:52 → MEDSG2 05-17 06:44
PROVIDERS: ADMIT Nurse Practitioner Acute Care; ATTEND Internal Medicine
DX: C20 Malignant neoplasm of rectum (principal); N17.0 Acute kidney failure with tubular necrosis; J15.9 Unspecified bacterial pneumonia; C78.7 Secondary malignant neoplasm of liver and intrahepatic bile duct; C79.51 Secondary malignant neoplasm of bone; J98.11 Atelectasis; C79.72 Secondary malignant neoplasm of left adrenal gland; G93.40 Encephalopathy, unspecified; C78.02 Secondary malignant neoplasm of left lung; C78.01 Secondary malignant neoplasm of right lung; E87.2 Acidosis; I11.0 Hypertensive heart disease with heart failure; I50.9 Heart failure, unspecified; K21.9 Gastro-esophageal reflux disease without esophagitis; E87.6 Hypokalemia; E03.9 Hypothyroidism, unspecified; E83.42 Hypomagnesemia; E86.1 Hypovolemia; R74.8 Abnormal levels of other serum enzymes; D63.8 Anemia in other chronic diseases classified elsewhere; M19.90 Unspecified osteoarthritis, unspecified site; K59.00 Constipation, unspecified; Z88.0 Allergy status to penicillin; Z88.2 Allergy status to sulfonamides; Z95.0 Presence of cardiac pacemaker; K64.5 Perianal venous thrombosis; R09.02 Hypoxemia
CPT/HCPCS: 36415; 36600; 45330; 47000; 71045-TC; 71250-TC; 76536-TC; 77012-TC; 80048-TC; 80053-TC; 80061-TC; 81000-TC; 82248-TC; 82378; 82550-TC; 82728-TC; 82962-TC; 83540-TC; 83605-TC; 83615-TC; 83735-TC; 83880; 83970; 84100-TC; 84155; 84165; 84436-TC; 84439-TC; 84443-TC; 84484-TC; 85025-TC; 85378-TC; 85385-TC; 85610-TC; 85730-TC; 86140-TC; 87040-TC; 87081-TC; 87086-TC; 88305-TC; 88307-TC; 88333-TC; 88341; 88342; 93307-TC; 93970-TC; 97116-TC; 97530-TC; A4216; G0378; J0692; J0780; J1650; J1885; J1956; J2250; J2270; J2310; J2405; J2704; J3010; J3475; J3480; J3490; J7030; J7042; J7050; J7060; J7070; Q9967; U0003-CS